=== PATIENT | male | born 1945 | race Caucasian/White ===

== ENCOUNTER → 2017-02-10 | Outpatient (CLI) | payer MEDICARE, OTHER | END | disposition home or self-care (01) | LOC: CVU 07:41 | PROVIDERS: ATTEND Internal Medicine Cardiovascular Disease | DX: R01.1 Cardiac murmur, unspecified (principal) | CPT/HCPCS: C8929 ==

== ENCOUNTER → 2017-11-18 | Outpatient (CLI) | payer MEDICARE, OTHER ==
[~2017-11-18] MED LIST: REGADENOSON 0.4 MG/5 ML SYRINGE ONE
== END | disposition home or self-care (01) ==
LOC: CVU 06:57
PROVIDERS: ATTEND Internal Medicine Cardiovascular Disease
DX: I11.9 Hypertensive heart disease without heart failure (principal); I35.0 Nonrheumatic aortic (valve) stenosis; I25.10 Atherosclerotic heart disease of native coronary artery without angina pectoris; E78.5 Hyperlipidemia, unspecified; E11.9 Type 2 diabetes mellitus without complications
CPT/HCPCS: 78452; 93017; A9502; C8929; J2785; Q9957

== ENCOUNTER → 2018-07-03 | Outpatient (CLI) | payer MEDICARE, OTHER | END | disposition home or self-care (01) | LOC: RAD 07:42 | PROVIDERS: ATTEND Family Medicine | DX: R10.13 Epigastric pain (principal) | CPT/HCPCS: 74241 ==

== ENCOUNTER 2018-09-28 08:08 | Observation (INO) | payer MEDICARE, OTHER ==
[~2018-09-28] VITALS: Ht 180.3 cm; Wt 129.5 kg
[2018-09-28 08:47] VITALS: BP 128/67
[2018-09-28] MEDS ORDERED: ASPI81TA45 PO (09:02)
[2018-09-28] MEDS ORDERED: UBID100C24 PO (09:02)
[2018-09-28] MEDS ORDERED: ATOR-2 PO (09:02)
[2018-09-28] MEDS ORDERED: POTA10TA17 PO (09:06)
[2018-09-28] MEDS ORDERED: METO25TA35 PO (09:06)
[2018-09-28] MEDS ORDERED: MELO7.5T31 PO (09:06)
[2018-09-28] MEDS ORDERED: METF500T17 PO (09:06)
[2018-09-28] MEDS ORDERED: NALT1TAB PO (09:06)
[2018-09-28] MEDS ORDERED: LEVO175T2 PO (09:07)
[2018-09-28] MEDS ORDERED: CHOL10003 PO (09:07)
[2018-09-28 09:15] LABS: ANION GAP 7 mmol/L (5-15); CALCIUM 9.2 mg/dL (8.5-10.1); CHLORIDE 113 mmol/L (98-107); CREATININE 1.14 mg/dL (0.7-1.3)
[2018-09-28] MEDS ORDERED: VERAPAMIL 2.5 MG/ML, 2ML ONE (09:48)
[2018-09-28] MEDS ORDERED: MIDAZOLAM 1 MG/ML, 5ML ONE (09:48)
[2018-09-28] MEDS ORDERED: FENTANYL PF 100 MCG/2ML ONE ×2 (09:48→12:00)
[2018-09-28] MEDS ORDERED: NITROGLYCERIN 5 MG/ML, 10ML ONE (09:48)
[2018-09-28] MEDS ORDERED: HEPARIN 1,000 UNITS/ML, 10ML ONE (09:48)
[2018-09-28] MEDS ORDERED: TICAGRELOR 90 MG TABLET ONE (09:48)
[2018-09-28] MEDS ORDERED: BIVALIRUDIN 250 MG ONE ×2 (09:48→11:07)
[2018-09-28] MEDS ORDERED: LIDOCAINE-MPF 1%, 5ML ONE (09:49)
[2018-09-28] MEDS ORDERED: LIDOCAINE 2%, 20ML ONE (10:26)
[2018-09-28] MEDS ORDERED: MIDAZOLAM 1 MG/ML, 2ML ONE (12:00)
[2018-09-28] MEDS ORDERED: PRASUGREL 10 MG TABLET ONE (12:23)
[2018-09-28] MEDS ORDERED: BIVALIRUDIN 250 MG in SODIUM CHLORIDE 0.9% 50 ML IV SCH (12:37)
[2018-09-28] MEDS ORDERED: SODIUM CHLORIDE 0.9% 1,000 ML IV SCH (12:37)
[2018-09-28 13:00] VITALS: BP 112/69
[2018-09-28] MEDS: SODIUM CHLORIDE 0.9% 1,000 ML IV SCH ×2 (18:42→22:05)
[2018-09-28 18:46] VITALS: BP 123/70
[2018-09-28] MEDS ORDERED: METOPROLOL TARTRATE 25 MG TABLET PO SCH (21:00)
[2018-09-28] MEDS ORDERED: ATORVASTATIN 80 MG TABLET PO SCH (21:00)
[2018-09-28 21:39] VITALS: BP 120/63
[2018-09-28] MEDS: POTASSIUM CITRATE 10 MEQ HOMEMEDPO SCH (21:53)
[2018-09-29 01:02] VITALS: BP 122/63
[2018-09-29 04:26] LABS: ANION GAP 8 mmol/L (5-15); CALCIUM 8.4 mg/dL (8.5-10.1); CHLORIDE 112 mmol/L (98-107); CREATININE 0.93 mg/dL (0.7-1.3)
[2018-09-29] MEDS: SODIUM CHLORIDE 0.9% 1,000 ML IV SCH (05:47)
[2018-09-29] MEDS ORDERED: LEVOTHYROXINE 175 MCG TABLET PO SCH (06:00)
[2018-09-29 07:25] VITALS: BP 117/68
[2018-09-29] MEDS ORDERED: TEMPLATE NON-FORMULARY MED. (Ubidecarenone (Coq-10) 300 MG) PO SCH (09:00)
[2018-09-29] MEDS ORDERED: MELOXICAM 15 MG TABLET PO SCH (09:00)
[2018-09-29] MEDS ORDERED: PRASUGREL 10 MG TABLET PO SCH (09:00)
[2018-09-29] MEDS ORDERED: CHOLECALCIFEROL 1,000 UNIT TABLET PO SCH (09:00)
[2018-09-29] MEDS ORDERED: ASPIRIN 81 MG TABLET EC PO SCH (09:00)
[2018-09-29] MEDS: POTASSIUM CITRATE 10 MEQ HOMEMEDPO SCH (09:44)
[2018-09-29] MEDS ORDERED: PRAS10TA4 PO (11:19)
[2018-09-29] MEDS ORDERED: SODIUM CHLORIDE 0.9% 1,000 ML IV SCH (12:37)
== END 2018-09-29 11:55 | disposition home or self-care (01) ==
LOC: CACL 08:08 → ORIP 12:37 → 5SO 13:04 → DCLOUNGE 09-29 11:40
PROVIDERS: ADMIT Internal Medicine Cardiovascular Disease; ATTEND Internal Medicine Cardiovascular Disease
DX: I25.10 Atherosclerotic heart disease of native coronary artery without angina pectoris (principal); I35.0 Nonrheumatic aortic (valve) stenosis; E78.5 Hyperlipidemia, unspecified; E11.9 Type 2 diabetes mellitus without complications; I10 Essential (primary) hypertension; I48.0 Paroxysmal atrial fibrillation; Z79.82 Long term (current) use of aspirin; Z79.84 Long term (current) use of oral hypoglycemic drugs; Z79.899 Other long term (current) drug therapy
CPT/HCPCS: 36415; 80048; 85014; 85018; 93005; 93461; 99156; 99157; C1725; C1760; C1769; C1874; C1887; C1894; C9600; G0378; J0583; J2250; J3010; J3490; J7030; Q9967; J1644

== ENCOUNTER → 2019-09-06 | Outpatient (CLI) | payer MEDICARE, OTHER ==
[~2019-09-06] MED LIST changes: +ASPI81TA45 PO; +ATOR-2 PO; +CHOL10003 PO; +LEVO175T2 PO; +MELO7.5T31 PO; +METF500T17 PO; +METO25TA35 PO; +NALT1TAB PO; +POTA10TA17 PO; +PRAS10TA4 PO; -REGADENOSON 0.4 MG/5 ML SYRINGE ONE; +UBID100C24 PO
== END | disposition home or self-care (01) ==
LOC: CVU 09:53
PROVIDERS: ATTEND Internal Medicine Cardiovascular Disease
DX: I08.0 Rheumatic disorders of both mitral and aortic valves (principal); I42.9 Cardiomyopathy, unspecified; E78.5 Hyperlipidemia, unspecified; I25.10 Atherosclerotic heart disease of native coronary artery without angina pectoris; Z95.1 Presence of aortocoronary bypass graft
CPT/HCPCS: 93306

== ENCOUNTER 2019-09-17 09:03 | Day surgery (SDC) | payer MEDICARE, OTHER ==
[~2019-09-17] VITALS: Ht 180.3 cm; Wt 125.5 kg
[2019-09-17] MEDS ORDERED: SODIUM CHLORIDE 0.9% 1,000 ML IV SCH (09:19)
[2019-09-17] MEDS ORDERED: MULT-758 PO (09:23)
[2019-09-17] MEDS ORDERED: CLOP75TA52 PO (09:25)
[2019-09-17] MEDS ORDERED: ASPIRIN 325 MG TABLET EC PO ONE (09:30)
[2019-09-17] MEDS ORDERED: ASPI81TA45 PO (09:36)
[2019-09-17 09:44] VITALS: BP 127/63
[2019-09-17] MEDS ORDERED: ASPIRIN 325 MG TABLET EC ONE (09:50)
[2019-09-17] MEDS ORDERED: FENTANYL PF 100 MCG/2ML ONE (10:06)
[2019-09-17] MEDS ORDERED: HEPARIN 1,000 UNITS/ML, 10ML ONE (10:06)
[2019-09-17] MEDS ORDERED: VERAPAMIL 2.5 MG/ML, 2ML ONE (10:06)
[2019-09-17] MEDS ORDERED: MIDAZOLAM 1 MG/ML, 5ML ONE (10:06)
[2019-09-17] MEDS ORDERED: LIDOCAINE-MPF 1%, 5ML ONE (10:06)
[2019-09-17] MEDS ORDERED: BIVALIRUDIN 250 MG ONE ×2 (10:06→10:43)
[2019-09-17] MEDS ORDERED: LIDOCAINE 1%, 20ML ONE (10:16)
== END 2019-09-17 13:35 | disposition home or self-care (01) ==
LOC: CACL 09:03
PROVIDERS: ATTEND Internal Medicine Cardiovascular Disease
DX: I35.0 Nonrheumatic aortic (valve) stenosis (principal); I25.10 Atherosclerotic heart disease of native coronary artery without angina pectoris; I25.810 Atherosclerosis of coronary artery bypass graft(s) without angina pectoris; I25.82 Chronic total occlusion of coronary artery; I48.0 Paroxysmal atrial fibrillation; I11.9 Hypertensive heart disease without heart failure; E78.5 Hyperlipidemia, unspecified; E03.9 Hypothyroidism, unspecified; Z79.1 Long term (current) use of non-steroidal anti-inflammatories (NSAID); Z79.02 Long term (current) use of antithrombotics/antiplatelets; Z79.82 Long term (current) use of aspirin; Z79.84 Long term (current) use of oral hypoglycemic drugs; Z79.890 Hormone replacement therapy; Z79.899 Other long term (current) drug therapy
CPT/HCPCS: 92920; 93455; 99156; 99157; C1760; C1769; C1887; C1894; J0583; J2250; J3010; Q9967; J1644

== ENCOUNTER 2019-09-21 10:50 | Outpatient (CLI) | payer MEDICARE, OTHER ==
[~2019-09-21 10:50] MED LIST changes: +CLOP75TA52 PO; +MULT-758 PO
[2019-09-21] MEDS ORDERED: OMNIPAQUE 350 MG/ML, 100ML BOTTLE ONE (13:00)
== END 2019-09-21 23:59 | disposition home or self-care (01) ==
LOC: CVU 10:50 → RAD 23:59
PROVIDERS: ATTEND Internal Medicine Cardiovascular Disease
DX: Z01.810 Encounter for preprocedural cardiovascular examination (principal); I35.0 Nonrheumatic aortic (valve) stenosis; I65.29 Occlusion and stenosis of unspecified carotid artery; R06.02 Shortness of breath; A52.03 Syphilitic endocarditis; I82.812 Embolism and thrombosis of superficial veins of left lower extremity; I70.0 Atherosclerosis of aorta; M41.9 Scoliosis, unspecified; I65.23 Occlusion and stenosis of bilateral carotid arteries; Z95.1 Presence of aortocoronary bypass graft
CPT/HCPCS: 71275; 74174; 93880; Q9967

== ENCOUNTER 2019-09-28 06:23 | Inpatient (IN) | payer MEDICARE, OTHER ==
[~2019-09-28] VITALS: Ht 180.3 cm; Wt 132.8 kg
[2019-09-28] MEDS ORDERED: SODIUM CHLORIDE 0.9% 1,000 ML IV ONE (06:28)
[2019-09-28] MEDS ORDERED: ONDANSETRON 2MG/ML, 2ML IVPush PRN (06:30)
[2019-09-28 06:44] VITALS: BP 121/69
[2019-09-28 07:17] LABS: BASOPHILS # (AUTO) 0.01 x10^3/uL (0-0.1); BASOPHILS % (AUTO) 0 % (0-1); EOSINOPHILS # (AUTO) 0.38 x10^3/uL (0-0.4); EOSINOPHILS % (AUTO) 7 % (1-7); LYMPHOCYTES # (AUTO) 1.53 x10^3/uL (1-3.4); LYMPHOCYTES % (AUTO) 26 % (22-44); MD NO; MEAN CORPUSCULAR HEMOGLOBIN 32.8 pg (27.5-34.5); MEAN CORPUSCULAR HGB CONC 33.6 g/dL (33.2-36.2); MONOCYTES # (AUTO) 0.39 x10^3/uL (0.2-0.8); MONOCYTES % (AUTO) 7 % (2-9); NEUTROPHILS # (AUTO) 3.61 x10^3/uL (1.8-6.8); NEUTROPHILS % (AUTO) 61 % (42-75); PLATELET COUNT 137 x10^3/uL (130-400); RED BLOOD COUNT 4.35 x10^6/uL (4.38-5.82); RED CELL DISTRIBUTION WIDTH 15.4 % (9.4-14.8)
[2019-09-28 07:29] LABS: ALANINE AMINOTRANSFERASE 32 U/L (12-78); ALBUMIN 3.3 g/dL (3.4-5.0); ANION GAP 4 mmol/L (5-15); CALCIUM 9.2 mg/dL (8.5-10.1); CHLORIDE 113 mmol/L (98-107); CREATININE 1.22 mg/dL (0.7-1.3)
[2019-09-28 07:31] LABS: ALKALINE PHOSPHATASE 74 U/L (45-117); BILIRUBIN,TOTAL 0.3 mg/dL (0.2-1.0); TOTAL PROTEIN 6.3 g/dL (6.4-8.2)
[2019-09-28] MEDS ORDERED: FENTANYL PF 250 MCG/5ML ONE (07:33)
[2019-09-28 07:50] LABS: INTERNATIONAL NORMALIZED RATIO 0.96 (0.93-1.1); PROTHROMBIN TIME 10.2 Seconds (9.6-11.5)
[2019-09-28] MEDS ORDERED: ROCURONIUM 10 MG/ML,10ML ONE (07:55)
[2019-09-28] MEDS ORDERED: CEFAZOLIN 1,000 MG ONE (07:55)
[2019-09-28] MEDS ORDERED: SUCCINYLCHOLINE 20 MG/ML, 10ML ONE ×2 (07:55→09:10)
[2019-09-28] MEDS ORDERED: PROTAMINE SULFATE 10 MG/ML, 5ML ONE (08:58)
[2019-09-28] MEDS ORDERED: LABETALOL 20 MG/4 ML IVPush PRN (09:00)
[2019-09-28] MEDS ORDERED: [UNRECOGNIZED DRUG - OTHER] PO SCH (09:00)
[2019-09-28] MEDS ORDERED: MULTIVITAMIN PO SCH (09:00)
[2019-09-28] MEDS: metFORMIN 500 MG TABLET PO SCH ×2 (09:00→20:20)
[2019-09-28] MEDS ORDERED: TEMPLATE NON-FORMULARY MED. (Ubidecarenone (Coq-10) 300 MG) PO SCH (09:00)
[2019-09-28] MEDS: NALTREXONE HCL HOMEMEDPO SCH ×2 (09:00→20:22)
[2019-09-28] MEDS ORDERED: POTASSIUM CITRATE 15 MEQ PO SCH (09:00)
[2019-09-28] MEDS: MELOXICAM 15 MG TABLET PO SCH ×2 (09:00→20:20)
[2019-09-28] MEDS ORDERED: hydrALAzine 20 MG/ML, 1ML IVPush PRN (09:00)
[2019-09-28] MEDS ORDERED: ACETAMINOPHEN 325 MG TABLET PO PRN (09:00)
[2019-09-28] MEDS: BUPROPION HCL HOMEMEDPO SCH ×2 (09:00→20:22)
[2019-09-28] MEDS: CLOPIDOGREL 75 MG TABLET PO SCH (09:00)
[2019-09-28] MEDS ORDERED: IRON PO SCH (09:00)
[2019-09-28] MEDS ORDERED: FOLIC ACID PO SCH (09:00)
[2019-09-28] MEDS: METOPROLOL TARTRATE 25 MG TAB PO SCH (09:00)
[2019-09-28] MEDS ORDERED: ASPIRIN 81 MG TABLET EC PO SCH (09:00)
[2019-09-28] MEDS ORDERED: PROPOFOL 10 MG/ML, 20ML ONE (09:10)
[2019-09-28] MEDS ORDERED: ONDANSETRON 2MG/ML, 2ML ONE (09:10)
[2019-09-28] MEDS ORDERED: HEPARIN 1,000 UNITS/ML, 10ML ONE ×2 (09:10)
[2019-09-28 19:03] VITALS: BP 96/59
[2019-09-28] MEDS: POTASSIUM CITRATE 15 MEQ HOMEMEDPO SCH (20:23)
[2019-09-28] MEDS ORDERED: ATORVASTATIN 80 MG TABLET PO SCH (21:00)
[2019-09-29 00:30] VITALS: BP 96/59
[2019-09-29 05:32] LABS: BASOPHILS # (AUTO) 0.03 x10^3/uL (0-0.1); BASOPHILS % (AUTO) 0 % (0-1); EOSINOPHILS % (AUTO) 4 % (1-7); LYMPHOCYTES # (AUTO) 1.49 x10^3/uL (1-3.4); LYMPHOCYTES % (AUTO) 18 % (22-44); MD NO; MEAN CORPUSCULAR HEMOGLOBIN 32.9 pg (27.5-34.5); MEAN CORPUSCULAR HGB CONC 33.7 g/dL (33.2-36.2); MEAN PLATELET VOLUME 8.3 fL (7.4-10.4); MONOCYTES % (AUTO) 5 % (2-9); NEUTROPHILS # (AUTO) 5.86 x10^3/uL (1.8-6.8); NEUTROPHILS % (AUTO) 73 % (42-75); PLATELET COUNT 102 x10^3/uL (130-400); RED BLOOD COUNT 4.06 x10^6/uL (4.38-5.82); RED CELL DISTRIBUTION WIDTH 16.4 % (9.4-14.8)
[2019-09-29 05:40] LABS: ANION GAP 3 mmol/L (5-15); CALCIUM 8.5 mg/dL (8.5-10.1); CHLORIDE 112 mmol/L (98-107); CREATININE 0.99 mg/dL (0.7-1.3)
[2019-09-29] MEDS ORDERED: LEVOTHYROXINE 175 MCG TABLET PO SCH (06:00)
[2019-09-29] MEDS ORDERED: MULTIVITAMINS/MINERALS TABLET PO SCH (09:00)
[2019-09-29] MEDS: NALTREXONE HCL HOMEMEDPO SCH (09:00)
[2019-09-29] MEDS: metFORMIN 500 MG TABLET PO SCH (09:00)
[2019-09-29] MEDS: BUPROPION HCL HOMEMEDPO SCH (09:00)
[2019-09-29] MEDS: POTASSIUM CITRATE 15 MEQ HOMEMEDPO SCH (09:00)
[2019-09-29 09:11] VITALS: BP 105/60
[2019-09-29] MEDS: METOPROLOL TARTRATE 25 MG TAB PO SCH (09:12)
[2019-09-29] MEDS: CLOPIDOGREL 75 MG TABLET PO SCH (09:12)
[2019-09-29] MEDS: MELOXICAM 15 MG TABLET PO SCH (09:12)
[2019-09-29] MEDS ORDERED: ACET325T26 PO (09:36)
[2019-09-29 09:55] VITALS: BP 101/56
== END 2019-09-29 12:00 | disposition home or self-care (01) | DRG 266 ==
LOC: ORIP 06:23 → 5SO 11:01 → DCLOUNGE 09-29 11:51
PROVIDERS: ADMIT Internal Medicine Cardiovascular Disease; ATTEND Internal Medicine Cardiovascular Disease
PROC: B246ZZ4 Ultrasonography of Right and Left Heart, Transesophageal (ICD-10-PCS; 2019-09-28)
PROC: B3101ZZ Fluoroscopy of Thoracic Aorta using Low Osmolar Contrast (ICD-10-PCS; 2019-09-28)
PROC: B41F1ZZ Fluoroscopy of Right Lower Extremity Arteries using Low Osmolar Contrast (ICD-10-PCS; 2019-09-28)
PROC: 02RF38Z Replacement of Aortic Valve with Zooplastic Tissue, Percutaneous Approach (ICD-10-PCS; principal; 2019-09-28 08:00)
PROC: 5A09357 Assistance with Respiratory Ventilation, Less than 24 Consecutive Hours, Continuous Positive Airway Pressure (ICD-10-PCS; 2019-09-29)
DX: I35.0 Nonrheumatic aortic (valve) stenosis (principal); Z00.6 Encounter for examination for normal comparison and control in clinical research program; I50.33 Acute on chronic diastolic (congestive) heart failure; Z68.41 Body mass index [BMI] 40.0-44.9, adult; E03.9 Hypothyroidism, unspecified; E11.9 Type 2 diabetes mellitus without complications; E66.9 Obesity, unspecified; E78.5 Hyperlipidemia, unspecified; I25.10 Atherosclerotic heart disease of native coronary artery without angina pectoris; Z95.1 Presence of aortocoronary bypass graft; Z20.828 Contact with and (suspected) exposure to other viral communicable diseases; Z79.84 Long term (current) use of oral hypoglycemic drugs
CPT/HCPCS: 33361; 36415; 76937; 80048; 80053; 85025; 85347; 85610; 86850; 86900; 86923; 87635; 93005; 93308; 93312; 93321; 93325; 93355; 99156; 99157; C1760; C1769; C1894; G0378; J0690; J1644; J2405; J2704; J2720; J3010; J0330; Q9967

== ENCOUNTER 2019-10-27 10:24 | Outpatient (CLI) | payer MEDICARE, OTHER ==
[~2019-10-27 10:24] MED LIST changes: +ACET325T26 PO
== END 2019-10-27 23:59 | disposition home or self-care (01) ==
LOC: CVU 10:24
PROVIDERS: ATTEND Internal Medicine Cardiovascular Disease
DX: R06.02 Shortness of breath (principal); I35.0 Nonrheumatic aortic (valve) stenosis; I65.29 Occlusion and stenosis of unspecified carotid artery
CPT/HCPCS: 93306; 93356

== ENCOUNTER → 2020-09-27 | Outpatient (CLI) | payer MEDICARE, OTHER | END | disposition home or self-care (01) | LOC: CVU 08:20 | PROVIDERS: ATTEND Internal Medicine Cardiovascular Disease | DX: Z01.810 Encounter for preprocedural cardiovascular examination (principal); R06.02 Shortness of breath; I35.0 Nonrheumatic aortic (valve) stenosis; I65.29 Occlusion and stenosis of unspecified carotid artery | CPT/HCPCS: 93306 ==